=== PATIENT | male | born 1990 | race Caucasian/White ===

== ENCOUNTER 2017-03-03 21:09 | Emergency (ER) | payer OTHER ==
[2017-03-03] MEDS ORDERED: Pantoprazole 40 MG Vial IVPUSH ONE (21:19)
[2017-03-03] MEDS ORDERED: Famotidine 20 MG/2 ML SDV IVPUSH ONE (21:19)
[2017-03-03] MEDS ORDERED: Lactated Ringers 1,000 ML IV ONE (21:19)
[2017-03-03] MEDS ORDERED: Ondansetron 4 MG/2 ML SDV IVPUSH ONE (21:19)
[2017-03-03] MEDS ORDERED: Sodium Chloride 0.9% 10 ML Syringe FLUSH PRN (21:19)
--- NOTE | 2017-03-03 21:19 | EDM.PDOC ---
ED HPI GENERAL MEDICAL PROBLEM - General Chief Complaint: Abdominal Pain Stated Complaint: left flank pain, abd pain, nausea Time Seen by Provider: 03/03/17 21:10 Source of Information: Reports: Patient, EMS, Old Records ([facility] chart/EMR). Denies: EMS Notes Reviewed History Limitations: Reports: No Limitations - History of Present Illness INITIAL COMMENTS - FREE TEXT/NARRATIVE: Patient was brought to the emergency room via basic ambulance transport for evaluation of severe 7/10 mostly left CVA tenderness with symptoms starting at about 20:00 hours this evening. Note that the patient was attempting to drive to that facility himself, however then became dizzy, nauseous and mildly diaphoretic with colic character to his symptoms. He has had trouble voiding during the last couple of days with last good urination yesterday evening, however no history of gross hematuria, dysuria, or other UTI symptoms. The patient also complains of occasional nonspecific left upper quadrant tenderness , however possible radiation from his CVA region He has also had some problems with constipation during the last 3 days with some mild gross hematochezia yesterday evening when forcing his bowel movement. He did have a normal bowel movement earlier this morning. No recent history of heartburn, diarrhea, melena , or any food intolerance, including fatty foods, etc.. The patient denies any chest pain/pressure, heart flutter, orthostasis, orthopnea, paresthesias, recent decreased exercise tolerance, or any other anginal-type symptoms. The patient also denies any recent fever, cough, wheezing, dyspnea, etc.. Onset: Today, Sudden Onset Date: 03/03/17 Onset Time: 20:00 Duration: Constant Location: Reports: Abdomen, Generalized Quality: Reports: Sharp, Stabbing Severity: Severe Improves with: Reports: None Worsens with: Reports: None Context: Reports: Other (As above) Associated Symptoms: Reports: Diaphoresis, Nausea/Vomiting. 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 Denies: Allergic Rhinitis, Hard of Hearing, Retinal Detachment Other HEENT History: reurrent otitis media as a child with PE tube therapy as below, patient wears soft contacts Cardiovascular History: Reports: Hypertension, Other (See Below). Denies: Afib , Aneurysm, Arrhythmia, Blood Clots/VTE/DVT, CAD, Heart Murmur, High Cholesterol , OR, Syncope Other Cardiovascular History: Patient does not know cholesterol status Respiratory History: Denies: Asthma, Bronchitis, Recurrent, COPD, Intubation, Previous, PE, Pneumonia, Recurrent, Pneumothorax, Sleep Apnea Gastrointestinal History: Reports: None. Denies: Celiac Disease, Cholelithiasis , Chronic Constipation, Chronic Diarrhea, Gastritis, GERD, GI Bleed, Hepatitis, Inflammatory Bowel Disease, Irritable Bowel Syndrome, Jaundice, Pancreatitis, PUD Genitourinary History: Reports: None. Denies: Acute Renal Failure, BPH, Chronic Renal Insuffiency, Renal Calculus, STD, Urinary Incontinence, UTI, Recurrent Musculoskeletal History: Reports: None. Denies: Arthritis, Back Pain, Chronic, Fracture, Gout, Neck Pain, Chronic, Osteoarthritis, RA, SLE Neurological History: Reports: None. Denies: Cerebral Aneurysms, Concussion, CVA, Headaches, Chronic, Head Trauma, Migraines, Neuropathy, Peripheral, Seizure Psychiatric History: Reports: None. Denies: Abuse, Victim of, ADD, ADHD, Addiction, Anxiety, Depression, Psych Hospitalization(s), PTSD, Suicide Attempt , Suicidal Ideation Endocrine/Metabolic History: Reports: Obesity/BMI 30+. Denies: Diabetes, Type I , Diabetes, Type II, Hypothyroidism, IDDM Hematologic History: Reports: None. Denies: Anemia, Blood Transfusion(s), Iron Deficiency Immunologic History: Reports: None. Denies: AIDS, HIV, SLE Oncologic (Cancer) History: Reports: None. Denies: Basal Cell Carcinoma, Hodgkin's Lymphoma, Leukemia, Lymphoma, Malignant Melanoma, Non-Hodgkin's Lymphoma, Squamous Cell Carcinoma Dermatologic History: Reports: Other (See Below). Denies: Eczema, Psoriasis Other Dermatologic History: Acne vulgaris - Infectious Disease History Infectious Disease History: Reports: Chicken Pox. Denies: C-Difficile, Measles , Meningitis, Mononucleosis, MRSA, Mumps, Rheumatic Fever, Rubella, Scarlet Fever, Shingles, VRE - Past Surgical History Head Surgeries/Procedures: Reports: None HEENT Surgical History: Reports: Myringotomy w Tube(s), Other (See Below). Denies: Adenoidectomy, Cataract Surgery, Eye Surgery, Laser Surgery, LASIK, Naso -Sinus Surgery, Oral Surgery, Tonsillectomy Other HEENT Surgeries/Procedures: Bilateral PE tubes as a child Cardiovascular Surgical History: Reports: None. Denies: Varicose Respiratory Surgical History: Reports: None. Denies: Thoracentesis GI Surgical History: Reports: None. Denies: Appendectomy, Cholecystectomy, Colonoscopy, EGD, Hernia, Abdominal, Hernia, Inguinal, Hernia Repair/Other, Mike Fundoplication Male Surgical History: Reports: None. Denies: Circumcision, Vasectomy Endocrine Surgical History: Reports: None. Denies: Thyroid Biopsy Neurological Surgical History: Reports: None. Denies: C-Spine, Discectomy, Laminectomy, Lumbar Spine, Spinal Fusion, Vertebroplasty Musculoskeletal Surgical History: Reports: None. Denies: Arthroscopic Procedure , Carpal Tunnel, Ganglion Cyst, Joint Replacement, ORIF, Shoulder Surgery Oncologic Surgical History: Reports: None Dermatological Surgical History: Reports: None - Past Imaging History Past Imaging History: Reports: None. Denies: CAT Scan, Stress Testing Social & Family History - Family History Family Medical History: Noncontributory : Denies: Renal Calculus Musculoskeletal: Denies: Gout - Tobacco Use Smoking Status *Q: Current Every Day Smoker Tobacco Use Within Last Twelve Months: Cigarettes Years of Tobacco use: 3 Packs/Tins Daily: 0.2 Used Tobacco, but Quit: No Smoking Cessation Information Provided To Patient: Yes Second Hand Smoke Exposure: No Second Hand Smoke Education Provided: No - Caffeine Use Caffeine Use: Reports: Coffee (1 cup every 2 weeks), Energy Drinks (1 can per day). Denies: Soda, Tea - Alcohol Use Alcohol Use History: Yes Days Per Week of Alcohol Use: 2 (No previous DWIs, problems with alcohol abuse, etc.) Number of Drinks Per Day: 2 (Usually beer) Total Drinks Per Week: 4 Alcohol Use in Last Twelve Months: Yes Alcohol Use Frequency: Socially - Recreational Drug Use Recreational Drug Use: No Drug Use in Last 12 Months: No Recreational Drug Type: Denies: Amphetamines (Speed), Cocaine, Heroin, Inhalants (Glues, Solvents, Aerosols), LSD (Acid), Marijuana/Hashish, Methamphetamine, Morphine - Living Situation & Occupation Living situation: Reports: Single (No children), Alone 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 Denies: Fever, Malaise, Weakness, Fatigue , Night Sweats, Decreased Appetite, Weight Loss, Weight Gain HEENT: Reports: Contact Lenses. Denies: Dental Pain, Ear Pain, Glasses, Hearing Loss, Rhinitis, Throat Pain, Vertigo, Vision Change Respiratory: Reports: No Symptoms. Denies: Shortness of Breath, Wheezing, Pleuritic Chest Pain, Cough, Hemoptysis Cardiovascular: Reports: No Symptoms. Denies: Chest Pain, Blood Pressure Problem, Claudication, Dyspnea on Exertion, Edema, Lightheadedness, Orthopnea, Palpitations, Syncope Endocrine: Reports: No Symptoms. Denies: Fatigue GI/Abdominal: Reports: Abdominal Pain, Constipation, Hematochezia (As above), Nausea. Denies: Anorexia, Black Stool, Diarrhea, Decreased Appetite, Difficulty Swallowing, Hematemesis, Melena, Vomiting : Reports: Dysuria, Flank Pain, Urinary Retention. Denies: Frequency, Hematuria, Incontinence, Urgency Musculoskeletal: Reports: No Symptoms. Denies: Neck Pain, Shoulder Pain, Arm Pain, Back Pain, Leg Pain Skin: Reports: Diaphoresis. Denies: Cyanosis, Bruising, Rash, Wound Neurological: Reports: Dizziness. Denies: Confusion, Headache, Numbness, Paresthesia, Syncope, Tingling, Difficulty Walking, Weakness Psychiatric: Reports: No Symptoms. Denies: Agitation, Anxiety, Confusion, Depression Hematologic/Lymphatic: Reports: No Symptoms Immunologic: Reports: No Symptoms ED EXAM, GI/ABD - Physical Exam Exam: See Below Exam Limited By: No Limitations General Appearance: Alert, WD/WN, No Apparent Distress Throat/Mouth: Normal Inspection, Normal Lips, Normal Teeth, Normal Gums, Normal Oropharynx, Normal Voice, No Airway Compromise. No: Dysphagia, Perioral Cyanosis Head: Atraumatic, Normocephalic Neck: Normal Inspection, Supple, Non-Tender, Full Range of Motion. No: Lymphadenopathy (L), Lymphadenopathy (R), Thyromegaly Respiratory/Chest: No Respiratory Distress, Lungs Clear, Normal Breath Sounds, No Accessory Muscle Use, Chest Non-Tender. No: Pleural Rub, Retractions Cardiovascular: Normal Peripheral Pulses, Regular Rate, Rhythm, No Edema, No Gallop, No JVD, No Murmur, No Rub. No: Gallop/S3, Gallop/S4, Friction Rub GI/Abdominal Exam: Normal Bowel Sounds, No Organomegaly, No Distention, No Abnormal Bruit, No Mass, Pelvis Stable, Tender (Palpation pain in the left upper quadrant). No: Distended, Guarding, Rebound, Hernia (Male) Exam: Deferred Rectal (Males) Exam: Normal Exam, Normal Rectal Tone, Prostate Normal, Heme - Stool. No: Black Stool, Bloody Stool, BPH, Tenderness (No Bonifacio space tenderness) Back Exam: Full Range of Motion, CVA Tenderness (L) (Mild palpation pain) Extremities: Normal Inspection, Normal Range of Motion, Non-Tender, No Pedal Edema, Normal Capillary Refill. No: Carmen's Sign Neurological: Alert, Oriented, CN II-XII Intact, Normal Cognition, Normal Gait, No Motor/Sensory Deficits Psychiatric: Normal Affect Skin Exam: Warm, Dry, Intact, Normal Color, No Rash, Tattoo(s) (Multiple), Other (Diffuse acne) Lymphatic: No Adenopathy Course - Vital Signs Last Recorded V/S: Last Vital Signs Temp 36.6 C 03/03/17 21:26 Pulse 89 03/03/17 23:05 Resp 18 03/03/17 23:05 BP 148/79 H 03/03/17 23:05 Pulse Ox 98 03/03/17 23:05 Vital Signs - 24 hr 03/03/17 03/03/17 03/03/17 21:26 22:25 23:05 Temperature [ 36.6 C Temporal] Pulse, 73 94 89 Peripheral [ Right Pulse Oximetry] Respiratory 16 18 18 Rate Blood Pressure 142/83 H 155/76 H 148/79 H [Right Upper Arm] O2 Sat by Pulse 100 98 98 Oximetry - Orders/Labs/Meds Orders: Active Orders 24 hr Category Date Time Status Peripheral IV Care [RC] . DIRECTED Care 03/03/17 21:19 Active Nothing Per Oral Diet [DIET] Diet 03/03/17 Breakfast Active Abdomen Pelvis wo Cont [CT] Stat Exams 03/03/17 22:06 Taken Abdomen Series w Chest 1V [CR] Stat Exams 03/03/17 21:19 Taken CULTURE URINE [RM] Stat Lab 03/03/17 21:19 Received H PYLORI STOOL ANTIGEN [MREF] Urgent Lab 03/03/17 21:19 Uncollected Sodium Chloride 0.9% [Saline Flush] Med 03/03/17 21:19 Active 10 ml FLUSH ASDIRECTED PRN Obtain Past Medical Record [OM.PC] Urgent Oth 03/03/17 21:19 Active Peripheral IV Insertion Adult [OM.PC] Stat Oth 03/03/17 21:19 Ordered Resuscitation Status Stat Resus Stat 03/03/17 21:19 Ordered Medication Orders Sodium Chloride (Saline Flush) 10 ml FLUSH ASDIRECTED PRN PRN Reason: Keep Vein Open Last Admin: 03/03/17 21:26 Dose: 10 ml Labs: Laboratory Tests 03/03/17 03/03/17 03/03/17 Range/Units 21:15 21:15 21:15 WBC 12.2 H (4.0-10.2) K/uL RBC 4.71 (4.33-5.41) M/uL Hgb 14.3 (13.1-16.8) g/dL Hct 41.1 (39.0-49.0) % MCV 87.3 (84.0-98.0) fL MCH 30.4 (28.2-33.3) pg MCHC 34.8 (31.7-36.0) g/dL RDW 11.9 (11.2-14.1) % Plt Count 310 (150-350) K/uL Neut % (Auto) 57.8 (45.0-80.0) % Lymph % (Auto) 33.1 (10.0-50.0) % Sharp % (Auto) 7.2 (2.0-14.0) % Eos % (Auto) 1.1 (0.0-5.0) % Baso % (Auto) 0.8 (0.0-2.0) % Neut # (Auto) 7.03 H (1.40-7.00) K/uL Lymph # (Auto) 4.03 H (0.50-3.50) K/uL Sharp # (Auto) 0.88 (0.00-1.00) K/uL Eos # (Auto) 0.14 (0.00-0.50) K/uL Baso # (Auto) 0.10 (0.00-0.20) K/uL PT 11.2 (9.8-11.7) SEC INR 1.0 APTT 23.9 (23.5-30.0) SEC Sodium (136-145) mmol/L Potassium (3.5-5.1) mmol/L Chloride (98-107) mmol/L Carbon Dioxide (21.0-32.0) mmol/L BUN (7-18) mg/dL Creatinine (0.51-1.17) mg/dL Est Cr Clr Drug Dosing Estimated GFR (MDRD) mL/min Glucose (74-106) mg/dL Lactic Acid (0.4-2.0) mmol/L Uric Acid (2.6-7.2) mg/dL Calcium (8.5-10.1) mg/dL Magnesium (1.8-2.4) mg/dL Total Bilirubin (0.2-1.0) mg/dL AST (15-37) U/L ALT (12-78) U/L Alkaline Phosphatase (46-116) IU/L Total Protein (6.4-8.2) g/dL Albumin (3.4-5.0) g/dL Amylase 36 (25-115) U/L Lipase (73-393) U/L Specimen Type Urine Color Urine Appearance Urine pH (5.0-9.0) Ur Specific [place] (1.005-1.030) Urine Protein (NEGATIVE) mg/dL Urine Glucose (UA) (NEGATIVE) mg/dL Urine Ketones (NEGATIVE) mg/dL Urine Occult Blood (NEGATIVE) Urine Nitrite (NEGATIVE) Urine Bilirubin (NEGATIVE) Urine Urobilinogen (0.2-1.0) E.U./dL Ur Leukocyte Esterase (NEGATIVE) Urine RBC /HPF Urine WBC /HPF Ur Epithelial Cells /LPF Urine Bacteria (NONE TO FEW) /HPF 03/03/17 03/03/17 03/03/17 Range/Units 21:15 21:15 21:19 WBC (4.0-10.2) K/uL RBC (4.33-5.41) M/uL Hgb (13.1-16.8) g/dL Hct (39.0-49.0) % MCV (84.0-98.0) fL MCH (28.2-33.3) pg MCHC (31.7-36.0) g/dL RDW (11.2-14.1) % Plt Count (150-350) K/uL Neut % (Auto) (45.0-80.0) % Lymph % (Auto) (10.0-50.0) % Sharp % (Auto) (2.0-14.0) % Eos % (Auto) (0.0-5.0) % Baso % (Auto) (0.0-2.0) % Neut # (Auto) (1.40-7.00) K/uL Lymph # (Auto) (0.50-3.50) K/uL Sharp # (Auto) (0.00-1.00) K/uL Eos # (Auto) (0.00-0.50) K/uL Baso # (Auto) (0.00-0.20) K/uL PT (9.8-11.7) SEC INR APTT (23.5-30.0) SEC Sodium 142 (136-145) mmol/L Potassium 3.8 (3.5-5.1) mmol/L Chloride 105 (98-107) mmol/L Carbon Dioxide 25.3 (21.0-32.0) mmol/L BUN 10 (7-18) mg/dL Creatinine 1.00 (0.51-1.17) mg/dL Est Cr Clr Drug Dosing TNP Estimated GFR (MDRD) > 60 mL/min Glucose 134 H (74-106) mg/dL Lactic Acid 3.0 H (0.4-2.0) mmol/L Uric Acid 8.2 H (2.6-7.2) mg/dL Calcium 9.4 (8.5-10.1) mg/dL Magnesium 1.7 L (1.8-2.4) mg/dL Total Bilirubin 0.2 (0.2-1.0) mg/dL AST 30 (15-37) U/L ALT 60 (12-78) U/L Alkaline Phosphatase 111 (46-116) IU/L Total Protein 7.5 (6.4-8.2) g/dL Albumin 3.9 (3.4-5.0) g/dL Amylase (25-115) U/L Lipase 79 (73-393) U/L Specimen Type Urincc Urine Color Yellow Urine Appearance Slightly cloudy Urine pH 6.0 (5.0-9.0) Ur Specific [place] 1.025 (1.005-1.030) Urine Protein Trace H (NEGATIVE) mg/dL Urine Glucose (UA) Negative (NEGATIVE) mg/dL Urine Ketones Trace H (NEGATIVE) mg/dL Urine Occult Blood Large H (NEGATIVE) Urine Nitrite Negative (NEGATIVE) Urine Bilirubin Negative (NEGATIVE) Urine Urobilinogen 0.2 (0.2-1.0) E.U./dL Ur Leukocyte Esterase Negative (NEGATIVE) Urine RBC >100 H /HPF Urine WBC 0-5 /HPF Ur Epithelial Cells Rare /LPF Urine Bacteria Rare (NONE TO FEW) /HPF Urine specimen set up for culture and sensitivity Microbiology 03/03/17 21:19 Stool Occult Blood (EDGAR) - Final Stool / Feces NEGATIVE OCCULT BLOOD Meds: Medications Generic Name Dose Route Start Last Admin Trade Name Fredharmesh PRN Reason Stop Dose Admin Sodium Chloride 10 ml 03/03/17 21:19 03/03/17 21:26 Saline Flush FLUSH 10 ml ASDIRECTED PRN Administration Keep Vein Open Discontinued Medications Generic Name Dose Route Start Last Admin Trade Name Fredharmesh PRN Reason Stop Dose Admin Famotidine 40 mg 03/03/17 21:19 03/03/17 21:25 Pepcid IVPUSH 03/03/17 21:20 40 mg ONETIME ONE Administration Lactated Ringer's 1,000 mls @ 999 mls/hr 03/03/17 21:19 03/03/17 21:26 Ringers, Lactated IV 03/03/17 22:19 999 mls/hr .BOLUS ONE Administration Ketorolac Tromethamine 30 mg 03/03/17 22:04 03/03/17 22:08 Toradol IVPUSH 03/03/17 22:05 30 mg ONETIME ONE Administration Ondansetron HCl 4 mg 03/03/17 21:19 03/03/17 21:25 Zofran IVPUSH 03/03/17 21:20 4 mg ONETIME ONE Administration Pantoprazole Sodium 40 mg 03/03/17 21:19 03/03/17 21:25 Protonix Iv IVPUSH 03/03/17 21:20 40 mg ONETIME ONE Administration Tamsulosin HCl 0.8 mg 03/03/17 22:05 03/03/17 22:09 Flomax PO 03/03/17 22:06 0.8 mg ONETIME ONE Administration - Radiology Interpretation Free Text/Narrative:: Acute abdominal x-rays shows evidence of mild pulmonary obstructive disease with no cardiomegaly, pulmonary infiltrates, CHF, free air, ileus, obstruction, fluid levels, etc. Telephone consultation at 23:00 hours with the radiology department at [facility] with verbal report of noncontrast CT scan of the abdomen and pelvis using stone protocol confirming 2 mm distal left ureteral calcification at the UV junction with mild secondary hydronephrosis CT Results Date: 03/03/17 CT Results Time: 23:00 Departure - Departure Time of Disposition: 23:35 Disposition: Home, Self-Care 01 Condition: Good Clinical Impression: Hyperuricemia, Lactic acid increased, Tobacco abuse counseling, Hypomagnesemia Hypertension Qualifiers: Hypertension type: essential hypertension Qualified Code(s): I10 - Essential ( primary) hypertension Obesity Qualifiers: Obesity type: due to excess calories Obesity classification: unspecified obesity classification Serious obesity comorbidity presence: without serious comorbidity Qualified Code(s): E66.09 - Other obesity due to excess calories Abdominal pain Qualifiers: Abdominal location: left upper quadrant Qualified Code(s): R10.12 - Left upper quadrant pain Urolithiasis Qualifiers: Urinary calculus location: lower urinary tract Qualified Code(s): N21.9 - Calculus of lower urinary tract, unspecified - Discharge Information Instructions: Uric Acid Test, Kidney Stones, [id number], Abdominal Pain, Adult, [id number], Fat and Cholesterol Restricted Diet, [id number] Referrals: Diane Adams NP [Primary Care Provider] - Forms: ED Department Discharge Additional Instructions: 1. Follow-up with regular provider in about 4 days for reevaluation and recommended repeat CBC, lactic acid level, fasting basic metabolic panel, glycosylated hemoglobin, and fasting lipid profile. 2. Tylenol 650 mg by mouth every 4 hours and/or OTC ibuprofen 2-3 tabs by mouth every 6 hours with food as directed./needed with next dose of ibuprofen in about 6 hours as needed secondary to medications given in the emergency room. 3. Strain all urine and bring stone to your regular provider or this facility as directed for further stone analysis. 4. [place] diet including encouragement of oral fluids such as sports drinks, etc. for 24-48 hours as directed. Advance to strict low-fat, low-cholesterol, low uric acid diet as tolerated thereafter. 5. Stop all tobacco use CARLOS as directed/per provided information and consider contacting Quit LIne, etc.. 6. Continue to observe your blood pressure closely through your regular provider - Problem List & Annotations (1) Urolithiasis SNOMED Code(s): 89030040 Code(s): N20.9 - URINARY CALCULUS, UNSPECIFIED Status: Acute Priority: High Current Visit: Yes Onset Date: 03/03/17 Annotation/Comment:: Stone about ready to pass. Patient is nonsymptomatic at time of discharge, including no nausea, abdominal pain, etc. Some gross hematuria but no direct evidence of urinary tract infection despite some mild leukocytosis. Close follow-up by regular provider. Stone to be brought in for analysis. Note 2 episodes of emesis in the emergency room during initial treatment. Qualifiers: Urinary calculus location: lower urinary tract Qualified Code(s): N21.9 - Calculus of lower urinary tract, unspecified; N21 - Calculus of lower urinary tract (2) Abdominal pain SNOMED Code(s): 17742066 Code(s): R10.9 - UNSPECIFIED ABDOMINAL PAIN Status: Acute Priority: High Current Visit: Yes Onset Date: 03/03/17 Annotation/Comment:: Nonspecific upper quadrant abdominal pain with history of recent constipation and mild gross hematochezia likely secondary to his hemorrhoids. High-dose IV Pepcid and IV Protonix given as GI prophylaxis. Symptoms improved at time at discharge. Close follow-up by his regular provider as per discharge instructions with the GI workup depending on his clinical course. Note negative Hemoccult Qualifiers: Abdominal location: left upper quadrant Qualified Code(s): R10.12 - Left upper quadrant pain (3) Hyperuricemia SNOMED Code(s): 52480156 Code(s): E79.0 - HYPERURICEMIA W/O SIGNS OF INFLAM ARTHRIT AND TOPHACEOUS DIS Status: Chronic Priority: Medium Current Visit: Yes Onset Date: 10/13 Annotation/Comment:: Newly diagnosed hyperuricemia with no history of gout. Low uric acid diet discussed. Note newly diagnosed urolithiasis (4) Lactic acid increased SNOMED Code(s): 65360215 Code(s): E87.2 - ACIDOSIS Status: Acute Priority: High Current Visit: Yes Onset Date: 03/03/17 Annotation/Comment:: Despite mild leukocytosis no clinical evidence of sepsis. IV fluids given as above. Close follow-up by regular provider as per discharge instructions (5) Hypertension SNOMED Code(s): 87968198 Code(s): I10 - ESSENTIAL (PRIMARY) HYPERTENSION Status: Chronic Priority : Medium Current Visit: Yes Annotation/Comment:: Blood pressure somewhat elevated in the emergency room likely secondary to his colic type symptoms. He denies any medication noncompliance. Continue to observe closely through his regular provider Qualifiers: Hypertension type: essential hypertension Qualified Code(s): I10 - Essential (primary) hypertension (6) Obesity SNOMED Code(s): 215823585 Code(s): E66.9 - OBESITY, UNSPECIFIED Status: Chronic Priority: Medium Current Visit: Yes Annotation/Comment:: Strict low-fat low-cholesterol diet, and weight loss in moderation discussed. Dietary information provided. Note mild nonfasting hyperglycemia today with glycosylated hemoglobin and fasting lipid panel recommended in the near future Qualifiers: Obesity type: due to excess calories Obesity classification: unspecified obesity classification Serious obesity comorbidity presence: without serious comorbidity Qualified Code(s): E66.09 - Other obesity due to excess calories (7) Hypomagnesemia SNOMED Code(s): 834536275 Code(s): E83.42 - HYPOMAGNESEMIA Status: Acute Priority: Medium Current Visit: Yes Onset Date: 03/03/17 Annotation/Comment:: Observe for now (8) Tobacco abuse counseling SNOMED Code(s): 648007325, [id number] Code(s): Z71.6 - TOBACCO ABUSE COUNSELING Status: Chronic Priority: Medium Current Visit: Yes Annotation/Comment:: Tobacco cessation strongly encouraged with information provided - Problem List Review Problem List Initiated/Reviewed/Updated: Yes - My Orders Last 24 Hours: My Active Orders 03/03/17 21:19 Peripheral IV Care [RC] . DIRECTED Abdomen Series w Chest 1V [CR] Stat CULTURE URINE [RM] Stat H PYLORI STOOL ANTIGEN [MREF] Urgent Sodium Chloride 0.9% [Saline Flush] 10 ml FLUSH ASDIRECTED PRN Obtain Past Medical Record [OM.PC] Urgent Peripheral IV Insertion Adult [OM.PC] Stat Resuscitation Status Stat 03/03/17 22:06 Abdomen Pelvis wo Cont [CT] Stat 03/03/17 Breakfast Nothing Per Oral Diet [DIET] - Assessment/Plan Last 24 Hours: My Active Orders 03/03/17 21:19 Peripheral IV Care [RC] . DIRECTED Abdomen Series w Chest 1V [CR] Stat CULTURE URINE [RM] Stat H PYLORI STOOL ANTIGEN [MREF] Urgent Sodium Chloride 0.9% [Saline Flush] 10 ml FLUSH ASDIRECTED PRN Obtain Past Medical Record [OM.PC] Urgent Peripheral IV Insertion Adult [OM.PC] Stat Resuscitation Status Stat 03/03/17 22:06 Abdomen Pelvis wo Cont [CT] Stat 03/03/17 Breakfast Nothing Per Oral Diet [DIET] Assessment:: As above Plan: As above. Extensive precautions were given to the patient, who is in agreement with the treatment plan. See Patient Instructions for further treatment and plan.
[2017-03-03 21:36] LABS: CHLORIDE,CL 105 mmol/L (98-107); SODIUM,NA 142 mmol/L (136-145)
[2017-03-03] MEDS ORDERED: Ketorolac 30 MG/ML SDV IVPUSH ONE (22:04)
[2017-03-03] MEDS ORDERED: Tamsulosin 0.4 MG Cap.ER PO ONE (22:05)
[2017-03-03 23:17] VITALS: BP 148/79
== END 2017-03-03 23:35 | disposition home or self-care (01) ==
LOC: LL.ED 21:09
DX: N13.2 Hydronephrosis with renal and ureteral calculous obstruction (principal); F17.210 Nicotine dependence, cigarettes, uncomplicated; E79.0 Hyperuricemia without signs of inflammatory arthritis and tophaceous disease; E83.42 Hypomagnesemia; I10 Essential (primary) hypertension; E66.09 Other obesity due to excess calories
CPT/HCPCS: 36415; 74022; 74176; 80053; 81001; 82150; 82272; 83605; 83690; 83735; 84550; 85025; 85610; 85730; 87086; 96361; 96374; 96375; 99285; A9270; C9113; J1885; J2405; J7050; J7120; S0028